=== PATIENT | female | born 1985 | race Caucasian/White ===

== ENCOUNTER 2016-12-15 15:18 | Emergency (ER) | payer OTHER ==
[~2016-12-15] VITALS: Ht 167.6 cm; Wt 47.0 kg
[~2016-12-15 15:18] MED LIST: AMOXICILLIN875 MG PO; KEFLEX500 MG PO; NOHOMEMEDS; PERCOCET 5/31 TABLET PO; ZOFRAN4 MG PO
[2016-12-15] MEDS ORDERED: MECLIZINE HCL25 MG PO (17:32)
[2016-12-15] MEDS ORDERED: PEN-VEE K,VEET500 MG PO (17:32)
[2016-12-15] MEDS ORDERED: MOTRIN600 MG PO (17:32)
[2016-12-15 17:37] VITALS: BP 119/72
== END 2016-12-15 17:48 | disposition home or self-care (01) ==
LOC: EME 15:18
DX: R42 Dizziness and giddiness (principal); K08.89 Other specified disorders of teeth and supporting structures; H92.02 Otalgia, left ear; K03.81 Cracked tooth; F17.200 Nicotine dependence, unspecified, uncomplicated
CPT/HCPCS: 99281; 99284